=== PATIENT | male | born 1955 | race Caucasian/White ===

== ENCOUNTER 2021-12-05 09:56 | Day surgery (SDC) | payer MEDICARE, BC ==
[2021-11-30 09:38] LABS: BASOPHILS # (AUTO) 0.1 X10'3 (0-0.2); BASOPHILS % (AUTO) 1.3 % (0-1); EOSINOPHILS # (AUTO) 0.2 X10'3 (0-0.9); LYMPHOCYTES # (AUTO) 1.6 X10'3 (1.1-4.8); LYMPHOCYTES % (AUTO) 27.7 % (21-51); MEAN CORPUSCULAR HEMOGLOBIN 32.9 PG (27.0-31.0); MEAN CORPUSCULAR HGB CONC 34.2 g/dL (33.0-36.5); MEAN CORPUSCULAR VOLUME 96.4 FL (78-98); MEAN PLATELET VOLUME 7.9 FL (7.4-10.4); MONOCYTES # (AUTO) 0.7 X10'3 (0-0.9); MONOCYTES % (AUTO) 12.4 % (2-12); NEUTROPHILS # (AUTO) 3.2 X10'3 (1.8-7.7); NEUTROPHILS % (AUTO) 54.6 % (42-75); PRE OP HEMATOCRIT 43.6 % (42.0-52.0); PRE OP HEMOGLOBIN 14.9 g/dL (14.0-17.9); PRE OP PLATELET COUNT 237 X10'3 (140-440); RED BLOOD COUNT 4.52 X10'6 (4.70-6.10)
[2021-11-30 09:58] LABS: ALBUMIN 3.7 G/DL (3.4-5.0); ALKALINE PHOSPHATASE 66 IU/L (46-116); BLOOD UREA NITROGEN 29 MG/DL (7-18); BUN/CREATININE RATIO 27.6 (5.4-32.0); CALCIUM 9.1 MG/DL (8.5-10.1); CHLORIDE 101 MMOL/L (99-107); CREATININE 1.05 MG/DL (0.60-1.10); PRE OP ALT 45 U/L (30-65); PRE OP ANION GAP 5 (8-16); PRE OP AST 38 U/L (10-37); PRE OP BILIRUB, TOTAL 1.8 MG/DL (0.0-1.0); PRE OP GLUCOSE 105 MG/DL (70-104); PRE OP POTASSIUM 4.3 MMOL/L (3.4-5.1); PRE OP SODIUM 138 MMOL/L (135-145); TOTAL PROTEIN 7.3 G/DL (6.4-8.2); eGFR 70 ML/MIN
[~2021-12-05] VITALS: Ht 177.8 cm; Wt 88.5 kg
[2021-12-05] VITALS (16 sets, daily range): BP systolic 115–149; BP diastolic 67–98
[~2021-12-05 09:56] MED LIST: ACET-2615 PO; ASPI81TA52 PO; ATOR40TA72 PO; CALC600T22 PO; CHOL500050 PO; CIDE300T3; CYCL1DRO2 EACHEYE; GLUC-95 PO; LACT1CAP65 PO; MULT-1085 PO; ceFAZolin inj. 2,000 MG in dextrose 5%-water 100 ML IV ONE; echinacea; famotidine 20mg tablet PO ONE; fish oil; flaxseed oil; ringers solution, lacted 1,000 ML IV SCH; zinc
[2021-12-05] MEDS ORDERED: BUPIVAcaine/PF 2.5 mg/ml (0.25%) 30ml vial ONE (11:46)
[2021-12-05] MEDS ORDERED: LIDOcaine 1% 30ml preserv. free vial ONE (11:46)
[2021-12-05] MEDS ORDERED: sevoflurane 250ml liquid IH ONE (11:53)
[2021-12-05] MEDS ORDERED: glycopyrrolate 0.2mg/ml inj ONE (11:53)
[2021-12-05] MEDS ORDERED: neostigmine methylsulfate 1 MG/ML 10ml vial ONE (11:53)
[2021-12-05] MEDS ORDERED: midazolam 1 mg/ML 2ml injection ONE (11:55)
[2021-12-05] MEDS ORDERED: fentaNYL/PF 50MCG/1 ML 2ML syringe ONE (11:55)
[2021-12-05] MEDS ORDERED: rocuronium 10mg/ml inj IV ONE (11:59)
[2021-12-05] MEDS ORDERED: propofol inj 20 ML IV ONE (13:23)
[2021-12-05] MEDS ORDERED: dexamethasone sod phosphate 4mg/ml inj. ONE (13:24)
[2021-12-05] MEDS ORDERED: ondansetron/PF 4mg/2ml inj ONE (13:24)
--- NOTE | 2021-12-05 13:49 | NUR ---
Received from OR via [facility], accompanied by Anesthesiologist DR DARLING and report given by Anesthesiologist AND DEMENTIA PROGRAM DIRECTOR. PT DROWSY, DENIES PAIN, ABDOMEN W/3 LAP SITES W/BANDAIDS CDI. Addendum: 12/05/21 at 1407 by Keri Gustafson RN Amended: Links added.
[2021-12-05] MEDS ORDERED: oxyCODONE/APAP 5-325mg tablet PO PRN (13:55)
[2021-12-05] MEDS ORDERED: meperidine/PF 25mg/ml syringe IV PRN ×2 (14:05)
[2021-12-05] MEDS ORDERED: ringers solution, lacted 1,000 ML IV SCH (14:05)
[2021-12-05] MEDS ORDERED: ondansetron/PF 4mg/2ml inj IV PRN (14:05)
[2021-12-05] MEDS ORDERED: morphine 2 MG/ML inj. syringe IV PRN (14:05)
[2021-12-05] MEDS ORDERED: proCHLORperazine 10 MG/2 ml inj IV PRN (14:05)
[2021-12-05] MEDS ORDERED: morphine 4 MG/ML inj SYRINge IV PRN (14:05)
[2021-12-05] MEDS: meperidine/PF 25mg/ml syringe IV PRN ×2 (14:11→14:17)
--- NOTE | 2021-12-05 15:42 | NUR ---
PT UP AND AMBULATED TO THE BATHROOM WITH STEADY GAIT. PT URINATED APROX 100MLS. PT POST URINATION BLADDER SCAN WITH 44MLS IN BLADDER. PER DR. TRANG BRODY FOR PT TO GO HOME. Addendum: 12/05/21 at 1544 by Kiersten Brewer RN, RN Amended: Links added.
--- NOTE | 2021-12-05 16:39 | NUR ---
PT HAS MET ALL DC CRITERIA. IV DC'D WITH CANULA INTACT. DC INSTRUCTIONS REVIEWED WITH PT, PT VERBALIZED UNDERSTANDING WITH NO FURTHER QUESTIONS AT THIS TIME. PT WHEELED OUT OF HOSPITAL TO PRIVATE VEHICLE WHERE LPT'S TOOK PT HOME. Addendum: 12/05/21 at 1738 by Kiersten Brewer RN, RN Amended: Links added.
== END 2021-12-05 16:39 | disposition home or self-care (01) ==
LOC: PAS 09:56
PROVIDERS: ATTEND Surgery
DX: K40.20 Bilateral inguinal hernia, without obstruction or gangrene, not specified as recurrent (principal); K66.0 Peritoneal adhesions (postprocedural) (postinfection); E78.5 Hyperlipidemia, unspecified; J45.909 Unspecified asthma, uncomplicated; M19.90 Unspecified osteoarthritis, unspecified site; Z79.899 Other long term (current) drug therapy; Z98.890 Other specified postprocedural states; Z96.612 Presence of left artificial shoulder joint; Z96.611 Presence of right artificial shoulder joint; Z90.81 Acquired absence of spleen; Z87.891 Personal history of nicotine dependence; Z87.442 Personal history of urinary calculi; Z94.84 Stem cells transplant status
CPT/HCPCS: 36415; 49650; 80053; 82948; 85025; 87811; 93005; C1781; J0690; J1100; J2175; J2250; J2405; J2704; J3010; J3490; J7030; J7060; J7120; Z7506; Z7508; Z7512; A4215; A4618; J2710

== ENCOUNTER 2022-05-24 08:31 | Day surgery (SDC) | payer MEDICARE, BC ==
[~2022-05-24] VITALS: Ht 177.8 cm; Wt 89.0 kg
[~2022-05-24 08:31] MED LIST changes: +LIDOcaine 1% 30ml preserv. free vial SQ ONE; -ceFAZolin inj. 2,000 MG in dextrose 5%-water 100 ML IV ONE; -famotidine 20mg tablet PO ONE; -ringers solution, lacted 1,000 ML IV SCH
[2022-05-24 08:45] VITALS: BP 138/85
[2022-05-24] MEDS ORDERED: ALBU8HFA PO (09:14)
[2022-05-24] MEDS ORDERED: OMEP40CA21 PO (09:14)
[2022-05-24 09:21] VITALS: BP 142/89
[2022-05-24 09:30] VITALS: BP 145/87
[2022-05-24 09:45] VITALS: BP 144/87
== END 2022-05-24 09:55 | disposition home or self-care (01) ==
LOC: SSTAY O 08:31
PROVIDERS: ATTEND Radiology Vascular & Interventional Radiology
DX: E04.1 Nontoxic single thyroid nodule (principal); G62.9 Polyneuropathy, unspecified; Z79.899 Other long term (current) drug therapy; Z79.82 Long term (current) use of aspirin; Z85.72 Personal history of non-Hodgkin lymphomas; Z98.890 Other specified postprocedural states; Z94.84 Stem cells transplant status; Z90.81 Acquired absence of spleen
CPT/HCPCS: 10005; J3490; 60100; 76942; 88173; 88305